=== PATIENT | male | born 1965 | race Hispanic/Latino ===

== ENCOUNTER 2018-07-28 10:32 | Emergency (ER) | payer MEDICAID ==
[2018-07-28 10:42] VITALS: TEMP 98; O2SAT 97; BMI 40.3
[2018-07-28 12:28] LABS: VENOUS BLOOD GAS BASE EXCESS 2.2 mmol/L (0.0-2.0); VENOUS BLOOD GAS PCO2 46 mmHg (40-60); VENOUS BLOOD GAS PO2 31 mm/Hg (30-55); VENOUS BLOOD PH 7.39 (7.32-7.43)
[2018-07-28 12:28] LABS: BASO # 0.1 K/uL (0.0-0.2); BASO % 0.8 % (0.0-2.0); EOS # 0.2 K/uL (0.0-0.7); EOS % 2.1 % (0.0-4.0); HEMOGLOBIN 14.2 g/dL (12.0-18.0); LYMPH # 2.3 K/uL (1.0-4.3); LYMPH % 21.9 % (20.0-40.0); MEAN CELL VOLUME 87.3 fl (80.0-94.0); MEAN CORPUSCULAR HEMOGLOBIN 30.9 pg (27.0-31.0); MEAN CORPUSCULAR HGB CONC 35.4 g/dL (33.0-37.0); MEAN PLATELET VOLUME 7.2 fl (7.2-11.7); MONO # 0.7 K/uL (0.0-0.8); MONO % 6.6 % (0.0-10.0); NEUT # 7.3 K/uL (1.8-7.0); NEUT % 68.6 % (50.0-75.0); NRBC % 0.1 % (0.0-0.0); RBC 4.6 Mil/uL (4.40-5.90); RED CELL DISTRIBUTION WIDTH 13.9 % (11.5-14.5); WHITE BLOOD COUNT 10.7 K/uL (4.8-10.8)
[2018-07-28 12:40] LABS: ALB/GLOB RATIO 1.2 (1.0-2.1); ALBUMIN 4.2 g/dL (3.5-5.0); AST/SGOT 18 U/L (17-59); BLOOD UREA NITROGEN 16 mg/dl (9-20); GFR NON-AFRICAN AMERICAN > 60
[2018-07-28 12:42] LABS: ALT/SGPT 34 U/L (21-72)
[2018-07-28 14:31] VITALS: PULSE 72
--- NOTE | 2018-07-28 14:31 | ED PDOC ---
HPI: Skin/Bite Injury Time Seen by Provider: 07/28/18 11:23 Chief Complaint (Nursing): Abnormal Skin Integrity History Per: Patient Additional Complaint(s): Pt. states he went to [facility] today for a wound check and was found to have a rash around his LUQ where he had an abscess drained. Pt. states last month he had abscess drained there and developed an allergic reaction to the dressing. States this morning he noticed that allergic reaction began to spready upward towards his L armpit. Reports no pain but states rash is pruritic. Denies fever , chest pain, SOB, antipyretic use. Past Medical History Reviewed: Historical Data, Nursing Documentation, Vital Signs Vital Signs: Last Vital Signs Temp 98 F 07/28/18 10:41 Pulse 72 07/28/18 14:31 Resp 18 07/28/18 14:30 BP 132/80 07/28/18 14:30 Pulse Ox 97 07/28/18 14:31 - Medical History PMH: Hypercholesterolemia - Family History Family History: States: No Known Family Hx - Home Medications Home Medications: Ambulatory Orders Medication Instructions Recorded Clindamycin [Cleocin] 300 mg PO TID #21 x 07/28/18 Clotrimazole/Betamethasone 1 applic EXT TID #1 tube 07/28/18 [Lotrisone] - Allergies Allergies/Adverse Reactions: Allergies Allergy/AdvReac Type Severity Reaction Status Date / Time No Known Allergies Allergy Verified 07/28/18 11:05 Review of Systems ROS Statement: Except As Marked, All Systems Reviewed And Found Negative Skin: Positive for: Rash Physical Exam - Physical Exam Appears: Positive for: Well, Non-toxic, No Acute Distress Skin: Positive for: Normal Color, Warm, Rash (LUQ with well healing linear wound mild surrounding erythema with scattered erythematous papules extending superiorly towards L axilla without vesicles, pustules, or streaking) Eye Exam: Positive for: Normal appearance Cardiovascular/Chest: Positive for: Regular Rate, Rhythm Respiratory: Positive for: Normal Breath Sounds Gastrointestinal/Abdominal: Positive for: Normal Exam, Soft. Negative for: Tenderness Neurologic/Psych: Positive for: Alert, Oriented (x3) - Laboratory Results Result Diagrams: 07/28/18 12:15 07/28/18 12:15 - ECG ECG: Positive for: Interpreted By Me ECG Rhythm: Positive for: Sinus Rhythm. Negative for: ST/T Changes Rate: 72 O2 Sat by Pulse Oximetry: 97 - Progress ED Course And Treament: Labs ordered. Case d/w Dr. Donahue who agrees with plan and care. Disposition - Clinical Impression Clinical Impression: Tinea corporis, Cellulitis - Patient ED Disposition Is Patient to be Admitted: No - Disposition Referrals: [facility] [Outside] Disposition: Routine/Home Disposition Time: 14:00 Condition: STABLE Additional Instructions: JOSÉ ANTONIO QUIGLYE, thank you for letting us take care of you today. Your provider was Brigitte Donahue MD and you were treated for DIABETIC,SKIN IRRITATION. The emergency medical care you received today was directed at your acute symptoms. If you were prescribed any medication, please fill it and take as directed. It may take several days for your symptoms to resolve. Return to the Emergency Department if your symptoms worsen, do not improve, or if you have any other problems. Please contact your doctor or call one of the physicians/clinics you have been referred to that are listed on the Patient Visit Information form that is included in your discharge packet. Bring any paperwork you were given at discharge with you along with any medications you are taking to your follow up visit. Our treatment cannot replace ongoing medical care by a primary care provider outside of the emergency department. Thank you for allowing the [email or web address] team to be part of your care today. If you had an X-Ray or CT scan: A Radiologist will review the ED reading if any change in treatment is needed we will contact you. If you had a blood, urine, or wound culture: It will take several days for the results, if any change in treatment is needed we will contact you. If you had an STI test: It will take 48 hours for the results. Please call after 1 week if you have not heard back. Prescriptions: Clindamycin [Cleocin] 300 mg PO TID #21 x Clotrimazole/Betamethasone [Lotrisone] 1 applic EXT TID #1 tube Instructions: Cellulitis (Skin Infection), Adult (DC), Ringworm (DC) Forms: [employer] (Icelandic) Print Language: CHILEAN
[2018-07-28 16:24] VITALS: BP 132/80; RESP 18
--- NOTE | 2018-07-28 22:43 | CARD ---
APPROVED REPORT Date of service: 07/28/2018 EKG Measurement Heart [id number] <Conclusion> Sinus rhythm with 1st degree AV block Incomplete right bundle branch block Borderline ECG
== END 2018-07-28 14:54 | disposition home or self-care (01) ==
LOC: H.ER 10:32
DX: B35.4 Tinea corporis (principal); L03.90 Cellulitis, unspecified; E78.00 Pure hypercholesterolemia, unspecified